=== PATIENT | female | born 1955 | race Caucasian/White ===

== ENCOUNTER 2017-07-28 10:37 | Emergency (ER) | payer BC ==
--- NOTE | 2017-07-28 10:43 | PDOC ---
History of Present Illness - General Chief Complaint: Shortness of Breath Stated Complaint: chest pain,shortness of breath Time Seen by Provider: 07/28/17 10:43 History Source: Patient - History of Present Illness Initial Comments: 07/28/17 11:23 Pt presents to the ED complaining of a one week history of constant substernal chest discomfort that she describes as "like a headache in my chest" accompanied by shortness of breath. Pain is moderate in severity and non radiating. Also complains of constant, mild shortness of breath. Denies any aggravating factors--states that she was able to excercise yesterday without any worsening of her pain. Presents to the ED today because her pain was worse last night. Past History - Past Medical History Allergies/Adverse Reactions: Allergies Allergy/AdvReac Type Severity Reaction Status Date / Time guaifenesin Allergy Severe rash Verified 07/28/17 10:38 [From Delsym Cough+Chest Congest DM] Iodinated Contrast- Oral and Allergy Intermediate Itching Verified 07/28/17 10: 38 IV Dye dextromethorphan Hbr Allergy Verified 07/28/17 10:38 [From Delsym] prochlorperazine edisylate Allergy respiratory Verified 07/28/17 10:38 [From Compazine] prochlorperazine maleate Allergy respiratory Verified 07/28/17 10:38 [From Compazine] pseudoephedrine HCl Allergy Verified 07/28/17 10:38 [From Sudafed] Sulfa (Sulfonamide Allergy Verified 07/28/17 10:38 Antibiotics) topiramate [From Topamax] Allergy Severe Verified 07/28/17 10:38 depression, bladder infection morphine AdvReac Nausea Verified 07/28/17 10:38 Contrast dye Allergy Severe Uncoded 09/25/15 16:27 itch, redness Home Medications: Ambulatory Orders NK [No Known Home Medication] 07/28/17 Cancer: Yes (UTERINE CA) Cardiac Disorders: No (NORMAL ECHO NOVEMBER 2015) Disorders: Yes (CYSTITIS) Psychiatric Problems: Yes (CHRONIC DEPRESSION) - Surgical History Cholecystectomy: Yes - Suicide/Smoking/Psychosocial Hx Smoking History: Never smoked Hx Alcohol Use: No Drug/Substance Use Hx: No Substance Use Type: None Review of Systems - Review of Systems Able to Perform ROS?: Yes Is the patient limited Thai proficient: No Constitutional: No: Symptoms Reported, See HPI, Chills, Diaphoresis, Fever, Loss of Appetite, Malaise, Night Sweats, Weakness HEENTM: No: Symptoms Reported, See HPI, Eye Pain, Blurred Vision, Tearing, Recent change in vision, Double Vision, Cataracts, Ear Pain, Ocular Prothesis, Ear Discharge, Nose Pain, Nose Congestion, Tinnitus, Nose Bleeding, Hearing Loss , Throat Pain, Throat Swelling, Mouth Pain, Dental Problems, Difficulty Swallowing, Mouth Swelling, Other Respiratory: Yes: Cough, Shortness of Breath (mild non productive cough) Cardiac (ROS): Yes: Chest Pain. No: Symptoms Reported, See HPI, Edema, Irregular Heart Rate, Lightheadedness, Palpitations, Syncope, Chest Tightness, Other ABD/GI: No: Symptoms Reported, See HPI, Abdominal Distended, Abd. Pain w/ defecation, Blood Streaked Bowels, Constipated, Diarrhea, Difficulty Swallowing , Nausea, Poor Appetite, Poor Fluid Intake, Rectal Bleeding, Vomiting, Indigestion, Abdominal cramping, Tarry Stools, Other : No: Symptoms Reported, See HPI, Burning, Dysuria, Discharge, Frequency, Flank Pain, Hematuria, Incontinence, Pain, Urgency, Testicular Mass, Testicular Swelling, Lesions, Testicular Pain, Other Musculoskeletal: No: Symptoms Reported, See HPI, Back Pain, Gout, Joint Pain, Joint Swelling, Muscle Pain, Muscle Weakness, Neck Pain, Joint Stiffness, Other Integumentary: No: Symptoms Reported, See HPI, Bruising, Change in Color, Change in Hair/Nails, Dryness, Erythema, Flushing, Lesions, Lumps, Pallor, Pruritus, Rash, Sweating, Other Neurological: No: Symptoms reported, See HPI, Headache, Numbness, Paresthesia, Pre-Existing Deficit, Seizure, Tingling, Tremors, Weakness, Unsteady Gait, Ataxia, Dizziness, Other Psychiatric: No: Anxiety, Depression, Frequent Crying, Stressors, Sleep Pattern Change, Emotional Problems, Mood Swings, Change in Appetite, Other *Physical Exam - Physical Exam General Appearance: Yes: Nourished, Appropriately Dressed HEENT: positive: Normal ENT Inspection Neck: positive: Supple Respiratory/Chest: positive: Lungs Clear, Normal Breath Sounds Cardiovascular: positive: Regular Rhythm, Regular Rate, S1, S2 Gastrointestinal/Abdominal: positive: Flat, Soft. 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 intact, Fully Oriented, Alert, Normal Mood/ Affect Heart Score/ECG Review - History History: Slightly suspicious - Electrocardiogram EKG: Normal - Age Age: 45-65 - Risk Factors Risk Factors Heart Score: Yes Hx Obesity Based on the list above the patient has:: 1-2 risk factors - Troponin Troponin: </= normal limit - Score Heart Score - Total: 2 ED Treatment Course - LABORATORY CBC & Chemistry Diagram: 07/28/17 11:50 07/28/17 11:50 Medical Decision Making - Medical Decision Making 07/28/17 11:49 Pt presents to the ED complaining of chest pain and shortness of breath that have been constant for one week. Denies other complaints. Symptoms are very atypical of cardiac disease. EKG shows no evidence of ischemia and HEART score is low. Symptoms are also not typical of PNA. Will check labs and CXR to rule out ACS, reassess. Likely discharge home if labs are normal. *DC/Admit/Observation/Transfer Diagnosis at time of Disposition: Chest pain Qualifiers: Chest pain type: unspecified Qualified Code(s): R07.9 - Chest pain, unspecified - Discharge Dispostion Disposition: HOME Condition at time of disposition: Good Admit: No - Referrals Referrals: Al Tafoya MD [Primary Care Provider] - - Patient Instructions Printed Discharge Instructions: DI for Chest Pain Additional Instructions: return to the ED for worsening chest pain or shortness of breath, fever, passing out, other new or worsening symptoms. - Post Discharge Activity
[2017-07-28 10:55] VITALS: TEMP 97.3; BMI 43.9
[2017-07-28] MEDS ORDERED: ASPIRIN 81 MG CHEWABLE TABLETS PO ONE (11:52)
[2017-07-28] MEDS ORDERED: ASPIRIN 81 MG CHEWABLE TABLETS ONE (12:01)
[2017-07-28 12:23] LABS: BASO % 1.2 % (0-2.0); EOS % 3.7 % (0-4.5); HEMATOCRIT 44.1 % (32.4-45.2); HEMOGLOBIN 14.4 GM/dl (10.7-15.3); LYMPH % 32.4 % (8-40); MCH 28.7 pg (25.7-33.7); MCHC 32.7 g/dl (32.0-36.0); MEAN CELL VOLUME 87.8 fl (80-96); MEAN PLT VOLUME 8.6 fl (7.5-11.1); MONO % 6.6 % (3.8-10.2); NEUT % 56.1 % (42.8-82.8); PLATELET COUNT 317 K/MM3 (134-434); RBC 5.03 M/mm3 (3.60-5.2); RDW 13.8 % (11.6-15.6); WHITE BLOOD COUNT 9.1 K/mm3 (4.0-10.8)
[2017-07-28 12:53] LABS: ALBUMIN 3.8 g/dl (3.5-5.0); ALK PHOS 58 U/L (32-92); ANION GAP 7 (8-16); BLOOD UREA NITROGEN 18 mg/dl (7-18); CALCIUM 9.1 mg/dl (8.4-10.2); CHLORIDE 105 mmol/L (98-107); CO2 26 mmol/L (22-28); CREATININE 0.8 mg/dl (0.6-1.3); GLUCOSE,RANDOM 86 mg/dl (74-106); POTASSIUM 4.5 mmol/L (3.5-5.1); SGOT/AST 15 U/L (10-42); SGPT/ALT 23 U/L (10-40); SODIUM 138 mmol/L (136-145); TOT PROT 6.6 g/dl (6.4-8.3)
[2017-07-28 12:58] LABS: TROPONIN I (DFP) < 0.03 ng/ml (0.03-0.50)
[2017-07-28 13:20] LABS: BILIRUBIN,TOTAL 0.4 mg/dl (0.2-1.0)
[2017-07-28] MEDS ORDERED: ACETAMINOPHEN 500 MG TABLET (FP) PO ONE (13:26)
[2017-07-28] MEDS ORDERED: ACETAMINOPHEN 325 MG TABLET (FP) ONE (13:45)
[2017-07-28 13:55] VITALS: BP 144/76; PULSE 80
--- NOTE | 2017-07-28 17:46 | EKG ---
Test Reason : Blood Pressure : / mmHG Vent. Rate : 080 BPM Atrial Rate : 080 BPM P-R Int : 164 ms QRS Dur : 068 ms QT Int : 388 ms P-R-T Axes : 054 -23 -15 degrees QTc Int : 447 ms NORMAL SINUS RHYTHM WHEN COMPARED WITH ECG OF 27-SEP-2015 09:50, NO SIGNIFICANT CHANGE WAS FOUND Confirmed by MD ESTEVEZ MARJORY ([id number]) on 07/28/2017 5:45:41 PM Referred By: DR HUDSON Confirmed By:MANDO ESTEVEZ MD
== END 2017-07-28 14:05 | disposition home or self-care (01) ==
LOC: FER 10:37 → SUPCPDRO 10:37 → FER 14:05
DX: R07.9 Chest pain, unspecified (principal)
CPT/HCPCS: 36415; 71045-TC; 80053; 82550; 84484; 85025; 93005; 99283-25

== ENCOUNTER 2017-08-20 08:02 | Day surgery (SDC) | payer BC ==
[2017-08-14 09:08] VITALS: BMI 45.5
[2017-08-20] MEDS ORDERED: PROPOFOL 20 ML ONE ×3 (08:06)
[2017-08-20] MEDS ORDERED: LIDOCAINE HCL/PF 2% SDV 5ML VIAL ONE (08:07)
[2017-08-20] MEDS ORDERED: ONDANSETRON 4 MG/2 ML VIAL ONE (09:33)
[2017-08-20 10:25] VITALS: BP 104/71; PULSE 78; TEMP 97.8
--- NOTE | 2017-08-22 14:41 | PATH ---
Surgical Pathology Report Patient Name: KAUR RITCHIE [facility]. Rec. #: [id number] /Age/Gender: 1955 (Age: 61) / F Account: [id number] Location: [facility]-ENDOSCOPY Taken: 08/20/2017 Received: 08/20/2017 Reported: 08/22/2017 Physicians: Lm Prieto M.D. Specimen(s) Received A: BX DUODENUM B: BX ANTRUM C: GASTRIC POLYP D: BX DISTAL ESOPHAGUS Clinical History Preoperative diagnosis: GERD, rule out colon cancer Postoperative diagnoses: Rule out celiac disease, gastritis, gastric polyp Final Diagnosis A. DUODENUM, BIOPSY: DUODENAL MUCOSA WITH REACTIVE FOLLICULAR HYPERPLASIA OF MUCOSA ASSOCIATED LYMPHOID TISSUE. NO ACTIVE INFLAMMATION IDENTIFIED. NO HISTOLOGIC EVIDENCE OF GLUTEN SENSITIVE ENTEROPATHY (CELIAC SPRUE) IDENTIFIED. B. STOMACH, ANTRUM, BIOPSY: REACTIVE GASTROPATHY. IMMUNOSTAIN FOR H. PYLORI IS NEGATIVE. C. STOMACH, GASTRIC POLYP, BIOPSY: HYPERPLASTIC POLYP WITH MILD CHRONIC INFLAMMATION AND STROMAL EDEMA. NO ADENOMATOUS CHANGE IDENTIFIED. IMMUNOSTAIN FOR H. PYLORI IS NEGATIVE. D. DISTAL ESOPHAGUS, BIOPSY: SQUAMOUS EPITHELIUM WITH PAPILLOMATOSIS SUGGESTIVE OF REFLUX ESOPHAGITIS. NO INTESTINAL METAPLASIA IDENTIFIED (NO HENDERSON'S IDENTIFIED). Electronically Signed Cecil Dash M.D. Gross Description A. Received in formalin, labeled "duodenum" is a cantor, irregular portion of soft tissue measuring 0.3 cm. in greatest dimension. The specimen is submitted in toto in one cassette. B. Received in formalin, labeled "antrum" are 2 cantor, irregular portions of soft tissue averaging 0.2 cm. in greatest dimension. The specimens are submitted in toto in one cassette. C. Received in formalin, labeled "gastric polyp" is a cantor, irregular portion of soft tissue measuring 0.3 cm. in greatest dimension. The specimen is submitted in toto in one cassette. D. Received in formalin, labeled "distal esophagus" is a cantor, irregular portion of soft tissue measuring 0.5 cm. in greatest dimension. The specimen is submitted in toto in one cassette. 08/21/201708/21/2017
== END 2017-08-20 10:27 | disposition home or self-care (01) ==
LOC: FASU-ENDO 08:02
PROVIDERS: ATTEND Internal Medicine Gastroenterology
PROC: 0DB68ZX Excision of Stomach, Via Natural or Artificial Opening Endoscopic, Diagnostic (ICD-10-PCS; 2017-08-20)
PROC: 0DB38ZX Excision of Lower Esophagus, Via Natural or Artificial Opening Endoscopic, Diagnostic (ICD-10-PCS; 2017-08-20)
PROC: 0DJD8ZZ Inspection of Lower Intestinal Tract, Via Natural or Artificial Opening Endoscopic (ICD-10-PCS; principal; 2017-08-20 09:01)
PROC: 0DB98ZX Excision of Duodenum, Via Natural or Artificial Opening Endoscopic, Diagnostic (ICD-10-PCS; 2017-08-20 09:01)
DX: Z12.11 Encounter for screening for malignant neoplasm of colon (principal); K29.50 Unspecified chronic gastritis without bleeding; K31.7 Polyp of stomach and duodenum; K31.89 Other diseases of stomach and duodenum
CPT/HCPCS: 88305-TC; 88342-TC

== ENCOUNTER 2020-08-23 06:27 | Day surgery (SDC) | payer OTHER, BC ==
[2020-08-18 16:55] VITALS: BMI 41.1
[2020-08-23] MEDS: CIPROFLOXACIN 0.3% EYE DROPS 5 ML BOTTLE ONE ×3 (07:05→07:15)
[2020-08-23] MEDS: TROPICAMIDE 1% OPHTH SOLN 15 ML BOTTLE ONE ×3 (07:05→07:15)
[2020-08-23] MEDS: CYCLOPENTOLATE 2% OPHTH SOLN 2 ML BOTTLE ONE ×3 (07:05→07:15)
[2020-08-23] MEDS: PHENYLEPHRINE 2.5% OPHTH SOLN 15 ML BOTTLE ONE ×3 (07:05→07:15)
[2020-08-23] MEDS ORDERED: LIDOCAINE 1% P/F 10 MG/ML VIAL ONE (07:29)
[2020-08-23] MEDS ORDERED: EPINEPHrine/PF 1 MG/1 ML (1:1,000) AMPULE ONE (07:29)
[2020-08-23] MEDS ORDERED: TETRACAINE 0.5% OPHTH SOLN 2 ML BOTTLE ONE (07:30)
[2020-08-23] MEDS ORDERED: BSS (NA/CA/MG/K) BALANCED SALT SOLUTION OPHTH SOLN 15 ML BOTTLE ONE (07:30)
[2020-08-23] MEDS ORDERED: CARBACHOL 0.01% INTRA-OCULAR 1.5 ML VIAL ONE (07:30)
[2020-08-23] MEDS ORDERED: NEO/POLYMYX B SULF/DEXAMETH OPHTHALMIC 5ML BOTTLE ONE (07:30)
[2020-08-23] MEDS ORDERED: MIDAZOLAM HCL 2 MG/2 ML SINGLE DOSE VIAL ONE (08:15)
[2020-08-23] MEDS ORDERED: ACETAMINOPHEN 325 MG TABLET (FP) PO PRN (10:03)
[2020-08-23] MEDS ORDERED: ONDANSETRON 4 MG/2 ML VIAL IVPUSH PRN (10:03)
[2020-08-23] MEDS ORDERED: LACTATED RINGERS SOLUTION 1,000 ML IV SCH (10:15)
[2020-08-23 11:28] VITALS: TEMP 98
[2020-08-23 11:45] VITALS: BP 118/76; PULSE 78
== END 2020-08-23 09:25 | disposition home or self-care (01) ==
LOC: FASU 06:27
PROVIDERS: ATTEND Ophthalmology
PROC: 08RK3JZ Replacement of Left Lens with Synthetic Substitute, Percutaneous Approach (ICD-10-PCS; principal; 2020-08-23 08:19)
DX: H26.9 Unspecified cataract (principal)

== ENCOUNTER 2020-09-13 06:18 | Day surgery (SDC) | payer OTHER, BC ==
[2020-09-06 09:47] VITALS: BMI 40.8
[2020-09-13] MEDS ORDERED: PHENYLEPHRINE 2.5% OPHTH SOLN 15 ML BOTTLE OD ONE ×3 (06:55→07:05)
[2020-09-13] MEDS: CIPROFLOXACIN HCL 0.3% OPHTH 2.5ML BOTTLE ONE ×3 (06:55→07:05)
[2020-09-13] MEDS: CYCLOPENTOLATE 2% OPHTH SOLN 2 ML BOTTLE ONE ×3 (06:55→07:05)
[2020-09-13] MEDS: TROPICAMIDE 1% OPHTH SOLN 15 ML BOTTLE ONE ×3 (06:55→07:05)
[2020-09-13] MEDS ORDERED: EPINEPHrine/PF 1 MG/1 ML (1:1,000) AMPULE ONE (07:11)
[2020-09-13] MEDS ORDERED: LIDOCAINE 1% P/F 10 MG/ML VIAL ONE (07:11)
[2020-09-13] MEDS ORDERED: NEO/POLYMYX B SULF/DEXAMETH OPHTHALMIC 5ML BOTTLE ONE (07:12)
[2020-09-13] MEDS ORDERED: TETRACAINE 0.5% OPHTH SOLN 2 ML BOTTLE ONE (07:12)
[2020-09-13] MEDS ORDERED: BSS (NA/CA/MG/K) BALANCED SALT SOLUTION OPHTH SOLN 15 ML BOTTLE ONE (07:12)
[2020-09-13] MEDS ORDERED: CARBACHOL 0.01% INTRA-OCULAR 1.5 ML VIAL ONE (07:12)
[2020-09-13] MEDS ORDERED: PROPOFOL 20 ML ONE (08:04)
[2020-09-13] MEDS ORDERED: MIDAZOLAM HCL 2 MG/2 ML SINGLE DOSE VIAL ONE (08:04)
[2020-09-13] MEDS ORDERED: SUCCINYLCHOLINE CHLORIDE 200 MG/10 ML SYRINGE ONE (08:05)
[2020-09-13 13:52] VITALS: TEMP 97.6
[2020-09-13 13:59] VITALS: BP 128/70; PULSE 77
== END 2020-09-13 09:15 | disposition home or self-care (01) ==
LOC: FASU 06:18
PROVIDERS: ATTEND Ophthalmology
PROC: 08RJ3JZ Replacement of Right Lens with Synthetic Substitute, Percutaneous Approach (ICD-10-PCS; principal; 2020-09-13 08:15)
DX: H26.8 Other specified cataract (principal)